=== PATIENT | male | born 1965 | race American Indian/Alaskan Native ===

== ENCOUNTER 2017-07-01 14:58 | Emergency (ER) | payer BC ==
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
[2017-07-01 19:52] VITALS: BP 133/76
[2017-07-01] MEDS ORDERED: MOTRIN PO ONE (20:05)
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
== END 2017-07-01 20:18 | disposition home or self-care (01) ==
LOC: ED 14:58
DX: S06.0X0A Concussion without loss of consciousness, initial encounter (principal); I10 Essential (primary) hypertension; Z87.891 Personal history of nicotine dependence; Y04.8XXA Assault by other bodily force, initial encounter; Y93.89 Activity, other specified; Y92.89 Other specified places as the place of occurrence of the external cause; Y99.8 Other external cause status
CPT/HCPCS: 70450; 72125; 99283

== ENCOUNTER 2018-07-13 04:14 | Emergency (ER) | payer BC ==
[2018-07-13] MEDS ORDERED: TYLENOL PO ONE (04:45)
[2018-07-13] MEDS ORDERED: TYLENOL ONE (04:45)
[2018-07-13 05:21] LABS: Hematocrit 31.5 % (35.5-45.6); Hemoglobin 10.6 gm/dl (11.8-15.2); Mean Corpuscular HGB Conc 34 % (32-34); Mean Corpuscular Hemoglobin 31 pg (28-32); Mean Corpuscular Volume 93 fl (84-94); Platelet Count 383 K/mm3 (140-440)
[2018-07-13 05:44] LABS: Alanine Aminotransferase 35 units/L (7-56); Albumin 4.4 g/dL (3.9-5); BUN/Creatinine Ratio 18; Blood Urea Nitrogen 18 mg/dL (9-20); Hemolysis Index 4
[2018-07-13 06:00] LABS: Bilirubin,Urine NEG (Negative); Blood,Urine MOD (Negative); Color,Urine Yellow (Yellow); Mucus,Urine FEW /HPF; Protein,Urine <15 mg/dL mg/dL (Negative); Urobilinogen,Urine < 2.0 mg/dL (<2.0)
[2018-07-13 06:43] LABS: Anisocytosis 1+; Band Neutrophils # (Manual) 0.6 K/mm3; Basophils % (Manual) 0 % (0.0-1.8); Hypochromasia 1+; Ovalocytes 1+; Total Cells Counted 100
--- NOTE | 2018-07-13 07:59 | Emergency Department Report ---
ED Abdominal Pain HPI - General Chief Complaint: Abdominal Pain Stated Complaint: LOWER BACK PAIN/APENDIX Time Seen by Provider: 07/13/18 07:46 Source: patient Mode of arrival: Ambulatory Limitations: No Limitations - History of Present Illness Initial Comments: Patient is a 52-year-old male presents emergency room with complaints of abdominal pain/right flank pain. Patient states that the pain is a 10 on a 10 started approximately one hour before arrival to the ER and started his right flank and radiate into his right lower quadrant. Patient denies dysuria and fever and chills and hematuria. Patient states that he had one episode of nausea and vomiting. Patient states that the pain is improved since taking a Tylenol. Patient states she has a past medical history of hypertension but is not taking his blood pressure medications at this time. MD Complaint: abdominal pain, flank pain -: Sudden Location: R flank Radiation: RLQ Migration to: no migration Severity: severe Severity scale (0 -10): 10 Quality: stabbing Consistency: constant Improves With: medication, rest Worsens With: movement Associated Symptoms: nausea, vomiting. denies: diarrhea, fever, chills, constipation, dysuria, hematemesis, hematochezia, melena, hematuria, anorexia, syncope - Related Data Previous Rx's Medication Instructions Recorded Last Taken Type Ibuprofen [Motrin] 800 mg PO Q8HR PRN #25 tablet 07/01/17 Unknown Rx Acetaminophen/Codeine [Tylenol 1 tab PO Q6H PRN #10 tab 07/13/18 Unknown Rx /Codeine # 3 tab] Naproxen [Naprosyn] 500 mg PO Q12HR PRN #15 tablet 07/13/18 Unknown Rx Tamsulosin HCl [Flomax] 0.4 mg PO DAILY #14 cap.er.24h 07/13/18 Unknown Rx Allergies Allergy/AdvReac Type Severity Reaction Status Date / Time No Known Allergies Allergy Unverified 07/13/18 04:36 ED Review of Systems ROS: Stated complaint: LOWER BACK PAIN/APENDIX Other details as noted in HPI Constitutional: denies: chills, fever Eyes: denies: eye pain, eye discharge, vision change ENT: denies: ear pain, throat pain Respiratory: denies: cough, shortness of breath, wheezing Cardiovascular: denies: chest pain, palpitations Endocrine: no symptoms reported Gastrointestinal: abdominal pain, nausea, vomiting. denies: diarrhea Genitourinary: denies: urgency, dysuria Musculoskeletal: denies: back pain, joint swelling, arthralgia Skin: denies: rash, lesions Neurological: denies: headache, weakness, paresthesias Psychiatric: denies: anxiety, depression Hematological/Lymphatic: denies: easy bleeding, easy bruising ED Past Medical Hx - Past Medical History Previous Medical History?: Yes Hx Hypertension: Yes Additional medical history: GLUCOMA. GOUT - Surgical History Past Surgical History?: No - Family History Family history: no significant - Social History Smoking Status: Current Some Day Smoker Substance Use Type: None - Medications Home Medications: Home Medications Medication Instructions Recorded Confirmed Last Taken Type Ibuprofen [Motrin] 800 mg PO Q8HR PRN #25 tablet 07/01/17 Unknown Rx Acetaminophen/Codeine [Tylenol 1 tab PO Q6H PRN #10 tab 07/13/18 Unknown Rx /Codeine # 3 tab] Naproxen [Naprosyn] 500 mg PO Q12HR PRN #15 tablet 07/13/18 Unknown Rx Tamsulosin HCl [Flomax] 0.4 mg PO DAILY #14 cap.er.24h 07/13/18 Unknown Rx ED Physical Exam - General Limitations: No Limitations General appearance: alert, in no apparent distress - Head Head exam: Present: atraumatic, normocephalic - Eye Eye exam: Present: normal appearance - ENT ENT exam: Present: mucous membranes moist - Neck Neck exam: Present: normal inspection - Respiratory Respiratory exam: Present: normal lung sounds bilaterally. Absent: respiratory distress - Cardiovascular Cardiovascular Exam: Present: regular rate, normal rhythm. Absent: systolic murmur, diastolic murmur, rubs, gallop - GI/Abdominal GI/Abdominal exam: Present: soft, normal bowel sounds. Absent: distended, tenderness, guarding, rebound - Rectal Rectal exam: Present: deferred - Extremities Exam Extremities exam: Present: normal inspection - Back Exam Back exam: Present: normal inspection - Neurological Exam Neurological exam: Present: alert, oriented X3 - Psychiatric Psychiatric exam: Present: normal affect, normal mood - Skin Skin exam: Present: warm, dry, intact, normal color. Absent: rash ED Course Vital Signs 07/13/18 07/13/18 07/13/18 04:18 04:33 04:45 Temperature 98.1 F 98.1 F Pulse Rate 55 L 55 L Respiratory 16 16 18 Rate Blood Pressure 177/72 Blood Pressure 172/72 [Right] O2 Sat by Pulse 100 100 Oximetry 07/13/18 07/13/18 07/13/18 07:59 08:00 08:01 Temperature Pulse Rate 65 Respiratory 16 Rate Blood Pressure 129/57 Blood Pressure 129/57 [Right] O2 Sat by Pulse 98 98 99 Oximetry 07/13/18 07/13/18 08:02 10:00 Temperature Pulse Rate Respiratory 16 Rate Blood Pressure 137/68 Blood Pressure [Right] O2 Sat by Pulse 100 Oximetry - Reevaluation(s) Reevaluation #1: Patient is pain-free. 07/13/18 08:48 CT results back. Patient is positive for hydronephrosis secondary to renal calculi. Will give patient a bolus of fluid and send him home with pain meds and Flomax. Also will discuss case with urologist for follow-up care. 07/13/18 09:48 Discussed all discharge instruction patient. Patient voiced understanding. Patient to follow up with primary care and urologist. Patient take meds as instructed. He is stable for discharge 07/13/18 10:08 Reevaluation #2: Patient stable. Patient still denies pain. Patient will be discharged home with follow-up instructions. Patient instructed to see urologist and primary care in 3-5 days. Patient given urology information. Patient given strict return to ER precautions. Patient given all discharge instruction and patient voiced understanding. 07/13/18 11:16 ED Medical Decision Making - Lab Data Result diagrams: 07/13/18 04:46 07/13/18 04:46 - Radiology Data Radiology results: report reviewed CT abdomen and pelvis without contrast: Right flank pain. Transverse images are obtained from the lower chest to the ischium with coronal and sagittal 2-D reformatted images. The lung bases are clear. The abdominal organs are unremarkable. There is a 3.5 mm calculus in the mid left kidney and what appears to be some calcific debris in the lower pole of the left kidney. A similar sized calculus is noted in the upper to mid right kidney with a tiny calculus in the superior pole. Calcific appearing debris is also identified in the mid and lower right kidney with a discrete 3 mm calculus. There is mild dilatation of the renal collecting system and right ureter. Minimal perinephric stranding identified on the right. 5.3 mm calculus at the right UV junction. The unopacified bowel and mesentery appears generally unremarkable except for minimal umbilical hernia. Retrolisthesis of L5 with degenerative spurring and discogenic narrowing at L5-S1. Impressions: 1. Bilateral renal lithiasis. 2. Obstructing calculus at right UV junction with mild hydronephrosis and hydroureter. 3. Degenerative L5-S1 changes. Transcribed By: BELLE Dictated By: KIRSTIE RUSSO MD Electronically Authenticated By: KIRSTIE RUSSO MD Signed Date/Time: 07/13/18 0837 - Medical Decision Making He is a 52-year-old male presents emergency room with right flank pain that improved with Tylenol. Patient found to have right renal stone with mild hydronephrosis. Patient to be discharged home. Patient is stable for discharge. We'll discharge home with urology follow-up instructions and discharge instructions and return to ER instructions. Patient will be given Flomax to aid in discharging stones. Patient will be given pain medications for his pain. - Differential Diagnosis flank pain. abd pain. renal stone. uti. Critical care attestation.: If time is entered above; I have spent that time in minutes in the direct care of this critically ill patient, excluding procedure time. ED Disposition Clinical Impression: Flank pain, Renal stone Abdominal pain Qualifiers: Abdominal location: right lower quadrant Qualified Code(s): R10.31 - Right lower quadrant pain Hydronephrosis Qualifiers: Hydronephrosis type: with ureteral calculous obstruction Qualified Code(s): N13.2 - Hydronephrosis with renal and ureteral calculous obstruction Hypertension Qualifiers: Hypertension type: essential hypertension Qualified Code(s): I10 - Essential ( primary) hypertension Disposition: DC-01 TO HOME OR SELFCARE Is pt being admited?: No Does the pt Need Aspirin: No Condition: Stable Instructions: Kidney Stones (ED), How to Strain Your Urine (ED), Hypertension ( ED), Flank Pain (ED) Additional Instructions: Patient to follow up with primary care in 3-5 days. Patient to follow up with urologist in 3-5 days. Patient to return to ER if condition worsens. Patient to take Tylenol or ibuprofen when necessary for pain. Patient increase water. Patient to rest. Patient take meds as directed. Prescriptions: Acetaminophen/Codeine [Tylenol /Codeine # 3 tab] 1 tab PO Q6H PRN #10 tab PRN Reason: Pain , Severe (7-10) Naproxen [Naprosyn] 500 mg PO Q12HR PRN #15 tablet PRN Reason: Pain, Moderate (4-6) Tamsulosin HCl [Flomax] 0.4 mg PO DAILY #14 cap.er.24h Referrals: PRIMARY CARE, [Primary Care Provider] - 3-5 Days JEFFERY CHRISTIANSON MD [Staff Physician] - 3-5 Days Time of Disposition: 12:17
--- NOTE | 2018-07-13 08:55 | Cat Scan Report ---
CT abdomen and pelvis without contrast: Right flank pain. Transverse images are obtained from the lower chest to the ischium with coronal and sagittal 2-D reformatted images. The lung bases are clear. The abdominal organs are unremarkable. There is a 3.5 mm calculus in the mid left kidney and what appears to be some calcific debris in the lower pole of the left kidney. A similar sized calculus is noted in the upper to mid right kidney with a tiny calculus in the superior pole. Calcific appearing debris is also identified in the mid and lower right kidney with a discrete 3 mm calculus. There is mild dilatation of the renal collecting system and right ureter. Minimal perinephric stranding identified on the right. 5.3 mm calculus at the right UV junction. The unopacified bowel and mesentery appears generally unremarkable except for minimal umbilical hernia. Retrolisthesis of L5 with degenerative spurring and discogenic narrowing at L5-S1. Impressions: 1. Bilateral renal lithiasis. 2. Obstructing calculus at right UV junction with mild hydronephrosis and hydroureter. 3. Degenerative L5-S1 changes.
[2018-07-13] MEDS ORDERED: NACL 0.9% 1000 ML 1,000 ML IV ONE (09:41)
[2018-07-13 10:02] VITALS: BP 137/68
== END 2018-07-13 11:38 | disposition home or self-care (01) ==
LOC: ED 04:14
DX: N13.2 Hydronephrosis with renal and ureteral calculous obstruction (principal); I10 Essential (primary) hypertension; H40.9 Unspecified glaucoma; M10.9 Gout, unspecified; F17.200 Nicotine dependence, unspecified, uncomplicated
CPT/HCPCS: 36415; 74176; 80053; 81001; 85007; 85025; 96360; 99284; J7030